=== PATIENT | female | born 1965 | race Caucasian/White ===

== ENCOUNTER 2016-10-21 13:50 | Emergency (ER) | payer OTHER ==
[~2016-10-21] VITALS: Ht 177.8 cm; Wt 100.7 kg
[~2016-10-21 13:50] MED LIST: BUDESONIDE NAS; BUPROPION HYDR150 M1 PO; CYCLOBENZAPRINE10 MG PO; DILAUDID2 MG PO; ELESTRIN0.06% TOP; FLEXERIL10 MG PO; IBU800 MG PO; MEDROL4 MG PO; MOBIC15 M1 PO; MOTRIN 600 MG600 MG PO; MULTIVITAMIN1 TAB PO; PERCOCET 325 MG1 TA2 PO; PERCOCET 5-3251 EACH PO; PREDNISONE20 M1 PO; PROGESTERONE200 MG PO; SPIRONOLACTONE100 MG PO; VICOPROFEN 7.51 TAB PO; [UNRECOGNIZED DRUG - OTHER] NAS
[2016-10-21 13:55] VITALS: BP 118/78
--- NOTE | 2016-10-21 13:59 | ED NECK/BACK PAIN COMPLAINT ---
History of Present Illness General Chief Complaint: Low Back Pain/Injury Stated Complaint: LOWER BACK PAIN Source: patient, old records Exam Limitations: no limitations Vital Signs & Intake/Output Vital Signs & Intake/Output Vital Signs Date Time Temp Pulse Resp B/P Pulse O2 O2 Flow FiO2 Ox Delivery Rate 10/21 1355 95.8 91 20 118/78 98 Room Air Allergies Coded Allergies: NO KNOWN ALLERGIES (08/13/16) Reconcile Medications BUPROPION HCL (Bupropion XL) 150 MG TAB.ER.24H 1 TAB PO DAILY APPETITE SUPPRESSION (Reported) Cyclobenzaprine HCl 10 MG TABLET 1 TAB PO BID PRN PAIN Estradiol (Elestrin) 0.87 GRAM/ACTUATION (0.06 %) GEL.PSYCH SPECIALIST 2 CUCA TOP QAM GENDER REASSIGNMENT (Reported) Estradiol (Elestrin) 0.06% GEL 1 CUCA TOP QPM HRT (Reported) Methylprednisolone. (Medrol) 4 MG TAB.DS.PK 1 DP PO AD RADICULOPATHY 6 on day 1 then reduce by one tablet daily until gone Oxycodone HCl/Acetaminophen (Percocet 5-325 MG Tablet) 5 MG-325 MG TABLET 1 TAB PO BID PRN PAIN PROGESTERONE,MICRONIZED (Progesterone) 200 MG CAPSULE 1 SGL PO QPM GENDER REASSIGNMENT (Reported) Spironolactone 100 MG TAB 1 TAB PO BID GENDER REASSIGNMENT (Reported) Triage Note: PT TO ED C/O LOWER BACK PAIN. H/O HERNIATED DISKS. STATES SINCE SEPTEMBER 30 HAS HAD PAIN. HAS BEEN TAKING NAPROSYN WITH NO RELIEF. Triage Nurses Notes Reviewed? yes HPI: PT TO ED C/O LOWER BACK PAIN. H/O HERNIATED DISKS. STATES SINCE SEPTEMBER 30 HAS HAD PAIN. HAS BEEN TAKING NAPROSYN WITH NO RELIEF. (AUDREY GREENWOOD) Past History Travel History Traveled to [place] past 21 day No Medical History Any Pertinent Medical History? see below for history Neurological: NONE EENT: NONE Cardiovascular: NONE Respiratory: NONE Gastrointestinal: NONE Hepatic: NONE Renal: NONE Musculoskeletal: chronic back pain, disk herniation Psychiatric: anxiety, depression, TRANSGENDER Blood Disorders: NONE Cancer(s): NONE SOFTWARE DEVELOPMENT PROJECT MANAGER/Reproductive: NONE Surgical History Surgical History: SEX CHANGE BILATERAL BREAST IMPLANTS Psychosocial History What is your primary language Setswana Tobacco Use: Never used ETOH Use: denies use Illicit Drug Use: denies illicit drug use Family History Hx Contributory? No (AUDREY GREENWOOD) Review of Systems Review of Systems Constitutional: Reports: see HPI. All Other Systems: Reviewed and Negative Comments Review of systems: See HPI, All other systems negative. Constitutional, no chills no fever, no malaise HEENT: No visual changes no sore throat no congestion Cardiovascular: No chest pain , no palpitation Skin, no rashes, no change in skin Respiratory: No dyspnea no cough no sputum GI: No nausea no vomiting, no diarrhea, no bloating/constipation : No dysuria No hematuria, no frequency, Muscle skeletal: No joint pain, no joint swelling, back pain, no neck pain, Neurologic: No numbness no headache Psych: No stress Heme/endocrine: No bruising no bleeding Immunology: No lymphadenopathy (AUDREY GREENWOOD) Physical Exam Physical Exam General Appearance: well developed/nourished, alert, awake Neck: normal inspection, supple, full range of motion Comments: Well-developed well-nourished person in no acute distress HEENT: Normal EENT exam; PERRL, EOMI, HEAD is atraumatic. moist mucous membranes. Neck: Supple, no lymphadenopathy, normal range of motion Back: Nontender, no midline or paralumbar muscle tenderness no CVA tenderness. Full range of motion Cardiovascular: Regular rate and rhythms no murmurs rubs Respiratory: No respiratory distress. Patient speaking in full complete sentences. Breath sounds clear to auscultation bilaterally: NO W/R/R Abdomen: Soft, nontender nondistended, no appreciable organomegaly. Normal bowel sounds. No rebound/guarding, No appreciable enlargement of the abdominal aorta Extremity: No edema, . Negative straight leg raise bilaterally full range of motion of extremities, normal and equal pulses bilaterally Neuro: Alert oriented x3, motor sensory normal There were no obvious focal neurologic abnormalities. Skin: No appreciable rash on exposed skin, skin is warm and dry. Psych: Mood and affect is normal, memory and judgment is normal. (AUDREY GREENWOOD) Progress Differential Diagnosis: cauda equina syn, herniated disc, myofascial strain, pyelo/UTI, sciatica, spinal cord inj, T/L spine injury, ureterolithiasis Plan of Care: Current Medications Sig/Grace Start time Last Medication Dose Stop Time Status Admin Cyclobenzaprine HCl 5 MG ONCE ONE 10/21 1415 UNVr (Flexeril 5MG Tab) 10/21 1415 Ketorolac 60 MG ONCE ONE 10/21 1414 UNVr Tromethamine 10/21 1415 (Toradol) Prednisone 60 MG ONCE ONE 10/21 1414 UNVr 10/21 1415 Patient clinically looks well. Patient has no evidence of radiculopathy. No urinary bowel dysfunction. No numbness in the genital area. Strength intact. Gross sensation intact. Patient resting comfortably and in no apparent distress. Pain is worse with range of motion. Pain is reproducible IN back with no bruising or ecchymosis noted. . Patient is to follow-up with primary care doctor. May need MRI of the lower back at some point time. No concerns for cauda equina at this point time. I considered this diagnosis but patient does not have any symptoms consistent with cauda equina. Patient has no secondary causes of back pain. No cardiac, pulmonary, or abdominal complaints. No abdominal pain on exam. Cardiac pulmonary exam within normal limits. No rashes, afebrile, denies recent weight loss, dizziness, lightheadedness. Information is provided for follow-up with neurosurgeon. Patient clinically appears well and respiratory was steady gait prescription for Medrol Dosepak pain meds including Percocet and Flexeril were provided. Patient will be medicated with Toradol IM and Flexeril prednisone here (AUDREY GREENWOOD) Departure Departure Time of Disposition: 1408 Disposition: HOME OR SELF CARE Condition: Stable Clinical Impression Primary Impression: Low back strain Referrals: KARIN LINDSAY,GENOVEVA PERALTA MD,[place] Additional Instructions: FOLLOW UP WITH NEUROSURGEON DR FRAZIER. MEDROL DOSE MICHAEL DIRECTED, FLEXERIL AND PERCOCET FOR BREAKTHROUGH PAIN- USE CAUTION THIS IS A NARCOTIC AND HIGHLY ADDICTIVE. NO DRIVING OR DRINKING ALCOHOL WHILE TAKING. Departure Forms: Customer Survey General Discharge Information Prescriptions: Current Visit Scripts Oxycodone HCl/Acetaminophen (Percocet 5-325 MG Tablet) 1 TAB PO BID PRN PAIN #10 TAB Cyclobenzaprine HCl 1 TAB PO BID PRN PAIN #15 TAB Methylprednisolone. 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 I have also reviewed all the pertinent lab results and diagnostic results. I agree with the findings and the plan of care as documented in the PA's/NUMERICAL CONTROL DRILL PRESS OPERATOR's documentation. x I have reviewed the ED Record and agree with the PA's/NUMERICAL CONTROL DRILL PRESS OPERATOR's documentation. [] Additions or exceptions (if any) to the PAs/NUMERICAL CONTROL DRILL PRESS OPERATOR's note and plan are summarized below: [] (GUMARO LINDSAY,NATALEE)
[2016-10-21] MEDS ORDERED: CYCLOBENZAPRINE10 M1 PO (14:10)
[2016-10-21] MEDS ORDERED: MEDROL4 M2 PO (14:10)
[2016-10-21] MEDS ORDERED: PERCOCET 5-3251 EACH PO (14:10)
== END 2016-10-21 14:28 ==
LOC: ERH 13:50
DX: S39.012A Strain of muscle, fascia and tendon of lower back, initial encounter (principal); X58.XXXA Exposure to other specified factors, initial encounter
CPT/HCPCS: 96372; J1885